=== PATIENT | female | born 1985 | race Caucasian/White ===

== ENCOUNTER 2017-12-03 16:55 | Emergency (ER) | payer SELFPAY ==
[2017-12-03 17:45] LABS: Absolute Lymphocytes (CBC) 2.6 K/uL (0.7-4.9); Absolute Monocytes 0.8 K/uL (0.1-1.3); Absolute Neutrophil 4.3 K/uL (1.8-8.0); Basophils % 0.3 % (0-1.3); Eosinophils % 2.6 % (0-4.4); Hematocrit 35.8 % (36.0-45.0); Lymphocytes % 32.9 % (15.3-44.8); MCH 20.4 pg (27.0-35.0); MCV 64.7 fL (80-100); Monocytes % 10.4 % (3.3-12.3); RBC Red Blood Cell Count 5.53 M/uL (3.86-4.86)
[2017-12-03 17:54] LABS: Urine Bacteria <20 /HPF (<20); Urine Culture Reflex Order REFLEXED; Urine Mucus 1+ /HPF (NONE SEEN); Urine RBC <5 /HPF (NONE SEEN)
[2017-12-03 17:55] LABS: Bicarbonate 25 mEq/L (21-31); Glucose Level 92 mg/dL (65-120); Lipase 34 U/L (22-51); Potassium 3.9 mEq/L (3.6-5.0); Sodium Level 139 mEq/L (135-145)
[2017-12-03] MEDS ORDERED: MORPHINE 10 MG/ML VIAL ONE (17:57)
[2017-12-03] MEDS ORDERED: ONDANSETRON 4 MG/2 ML VIAL ONE (17:57)
[2017-12-03] MEDS ORDERED: NA CHLORIDE 0.9% 1,000 ML ONE (17:57)
[2017-12-03 18:01] LABS: ALT/SGPT 13 IU/L (10-60); AST/SGOT 18 IU/L (10-42); Albumin 4.1 g/dL (3.2-5.5); Alkaline Phosphatase 64 IU/L (42-121); BUN Blood Urea Nitrogen 8 mg/dL (6-20); Bilirubin Direct < 0.1 mg/dL (0-0.2); Bilirubin Total 0.5 mg/dL (0.3-1.2); Glomerular Filtration Rate > 90 mL/min (=/>90); Protein, Total 7.1 g/dL (6.0-8.3)
[2017-12-03 18:22] LABS: Blood Morphology Comment NOTED (NOT SEEN); Platelet Estimate ADEQ; Urine White Blood Cell Casts OK
[2017-12-03 18:23] LABS: Anisocytosis SLIGHT
[2017-12-03 18:24] LABS: Hypochromasia 1+
[2017-12-03] MEDS ORDERED: PROMETHAZINE 25 MG/ML VIAL ONE (18:43)
--- NOTE | 2017-12-03 18:55 | RAD REPORT ---
EXAM DESCRIPTION: CT - Abdomen Pelvis W Contrast - 12/03/2017 6:29 pm CLINICAL HISTORY: Abdominal pain right abdominal pain COMPARISON: February 2017 TECHNIQUE: Computed axial tomography of the abdomen pelvis was obtained. 100 cc Isovue-300 was admin istered intravenously. Oral contrast was not requested which limits evaluation of bowel. All CT scans are performed using dose optimization technique as appropriate and may include automated exposure control or mA/KV adjustment according to patient size. FINDINGS: The liver, spleen, pancreas, adrenal and kidneys appear unremarkable. There is no evidence of diverticulitis. A 43 millimeter complex cystic mass is present within the rig ht adnexal. Significant free fluid is not noted. The wall of the rectosigmoid colon appears mildly thickened. A 3 centimeter area of narrowing involve s the proximal sigmoid colon IMPRESSION: 43 millimeter complex cystic mass within the right adnexal probably represents a benign complex ovarian cyst. An ovarian cystadenoma can also have this appearance. It is recommended patient have a followup ultrasound in the a couple of months to assess stability/resolution. The wall of the rectosigmoid colon appears mildly thickened. This could represent a mild colitis or s imply be secondary to incomplete distention. 3 centimeter area of narrowing involves the proximal sigmoid colon. Most likely this is secondary to spasm. A mass can have this appearance but is considered less likely. Followup is recommended.
[2017-12-03 18:58] LABS: Urine Blood TRACE (NEG); Urine Glucose NEGATIVE (NEG); Urine Protein 2+ (NEG); Urine pH 8.5 (5.0-7.0)
--- NOTE | 2017-12-03 19:07 | ER ---
Nurse's Notes [facility] Name: Sujey Diego Age: 32 yrs Sex: Female : 1985 Arrival Date: 12/03/2017 Time: 16:56 Bed 24 Private MD: Diagnosis: Urinary tract infection, site not specified;Other ovarian cysts-right Presentation: 12/03 17:00 Presenting complaint: Patient states: marga been having R lower abd pain since Monday hj and then back pain that started last night, today i vomited x3; denies fever and chills;. Transition of care: patient was not received from another setting of care. Onset of symptoms was December 03, 2017. Care prior to arrival: None. 17:00 Method Of Arrival: Ambulatory hj 17:00 Acuity: OMAIRA 3 hj Triage Assessment: 17:02 General: Appears in no apparent distress. uncomfortable, Behavior is calm, cooperative, hj appropriate for age. Pain: Complains of pain in right lower quadrant Pain radiates to right low back. GI: Reports lower abdominal pain, nausea, vomiting. 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 hj Historical: - Allergies: 17:02 Biaxin; hj 17:02 Demerol; hj 17:02 Doxycycline; hj 17:02 NSAIDS; agravated her chrons; hj 17:02 Prednisone; hj 17:02 steroids-causes adalberto; hj - Home Meds: 17:02 Cymbalta 30 mg Oral cpDR 1 cap once daily [Active]; hydroxyzine HCl 50 mg Oral tab for hj as needed for insomnia [Active]; Seroquel 100 mg Oral tab daily [Active]; Trileptal 300 mg Oral tab [Active]; - PMHx: 17:02 Anxiety; Bipolar disorder; Crohn's; Depression; Pneumonia; hj - PSHx: 17:02 ; Cholecystectomy; Tubal ligation; Appendectomy; rectoplexy; hj - Immunization history:: Adult Immunizations unknown. - Social history:: Smoking status: Patient/guardian denies using tobacco. Screenin:15 Abuse screen: Denies threats or abuse. Denies injuries from another. Nutritional kr2 screening: No deficits noted. Tuberculosis screening: No symptoms or risk factors identified. Fall Risk None identified. Assessment: 17:03 GI: Bowel sounds present X 4 quads. Abd is soft Abdomen is tender to palpation. hj 17:10 General: Appears in no apparent distress. comfortable, well groomed, well developed, kr2 well nourished, Behavior is calm, cooperative, appropriate for age. Pain: Complains of pain in abdomen and right lower quadrant Pain radiates to right low back Pain currently is 7 out of 10 on a pain scale. Quality of pain is described as aching, sharp, Pain began suddenly, Is continuous, Alleviated by nothing. Aggravated by urination. Neuro: Level of Consciousness is awake, alert, obeys commands, Oriented to person, place, time, situation, Appropriate for age. Cardiovascular: Capillary refill < 3 seconds in bilateral fingers Patient's skin is warm and dry. Respiratory: Airway is patent Respiratory effort is even, unlabored, Respiratory pattern is regular, symmetrical. GI: Bowel sounds present X 4 quads. Abd is soft X 4 quads Abdomen is tender to palpation in right lower quadrant and left lower quadrant. : Reports burning with urination, pain in suprapubic area. EENT: Oral mucosa is moist. Poor dentition noted. Derm: Skin is intact, is healthy with good turgor, Skin is pink, warm \T\ dry. Musculoskeletal: Circulation, motion, and sensation intact. Range of motion: intact in all extremities. 18:59 Reassessment: Patient appears in no apparent distress at this time. Patient and/or kr2 family updated on plan of care and expected duration. Pain level reassessed. Patient is alert, oriented x 3, equal unlabored respirations, skin warm/dry/pink. Patient states symptoms have improved. 19:20 Reassessment: Patient appears in no apparent distress at this time. Patient and/or kr2 family updated on plan of care and expected duration. Pain level reassessed. Patient is alert, oriented x 3, equal unlabored respirations, skin warm/dry/pink. Patient states feeling better. Patient states symptoms have improved. Vital Signs: 17:03 BP 132 / 104; Pulse 94; Resp 18; Temp 99.6(TE); Pulse Ox 100% on R/A; Weight 63.5 kg; hj Height 5 ft. 2 in. (157.48 cm); Pain 7/10; 17:19 Temp 98.7(O); dh3 18:57 BP 148 / 93; Pulse 74; Resp 15; Pulse Ox 100% on R/A; kr2 18:58 Pain 6/10; kr2 19:40 BP 133 / 94; Pulse 75; Resp 15; Temp 98.5(O); Pulse Ox 99% ; kr2 17:03 Body Mass Index 25.60 (63.50 kg, 157.48 cm) ED Course: 16:56 Patient arrived in ED. as 17:01 Triage completed. hj 17:03 Arm band placed on right wrist. hj 17:04 Rama Espinosa, GORAN is Primary Nurse. kr2 17:06 Christiano Brambila NP is PHCP. pm1 17:06 Eduardo Eric MD is Attending Physician. pm1 17:15 Patient has correct armband on for positive identification. Bed in low position. Call kr2 light in reach. Side rails up X 1. Pulse ox on. NIBP on. Door closed. Warm blanket given. Head of bed elevated. 17:40 Initial lab(s) drawn, by me, sent to lab. Inserted saline lock: 20 gauge in right dh3 antecubital area, using aseptic technique. Blood collected. 18:27 CT completed. Patient moved to CT via wheelchair. Patient moved back from CT. cw1 18:30 CT Abd/Pelvis - W/Contrast In Process Unspecified. EDMS 19:05 Rishi Bedolla MD is Referral Physician. pm1 19:13 No provider procedures requiring assistance completed. kr2 19:39 IV discontinued, intact, bleeding controlled, No redness/swelling at site. Pressure kr2 dressing applied. Administered Medications: 17:45 Drug: NS 0.9% 1000 ml Route: IV; Rate: 1000 ml; Site: right antecubital; kr2 19:12 Follow up: Response: No adverse reaction; IV Status: Completed infusion kr2 17:45 Drug: morphine 4 mg Route: IVP; Site: right antecubital; kr2 18:00 Follow up: Response: No adverse reaction; Pain is decreased kr2 17:45 Drug: Zofran 4 mg Route: IVP; Site: right antecubital; kr2 18:00 Follow up: Response: No adverse reaction; Nausea is decreased kr2 18:39 Drug: morphine 4 mg Route: IVP; Site: right antecubital; kr2 18:59 Follow up: Response: No adverse reaction; Pain is decreased kr2 18:39 Drug: Phenergan 12.5 mg Route: IVP; Site: right antecubital; kr2 18:58 Follow up: Response: No adverse reaction; Nausea is decreased kr2 19:19 Drug: Rocephin 1 grams Route: IV; Rate: calculated rate; Site: right antecubital; kr2 19:25 Follow up: Response: No adverse reaction; IV Status: Completed infusion kr2 Outcome: 19:06 Discharge ordered by MD. pm1 19:39 Discharged to home ambulatory, with family. kr2 19:39 Condition: good 19:39 Discharge instructions given to patient, Instructed on discharge instructions, follow up and referral plans. medication usage, Demonstrated understanding of instructions, follow-up care, medications, Prescriptions given X 3. 19:40 Patient left the ED. kr2 Addendum: 12/06/2017 11:02 Addendum: Culture Results: Positive urine culture. No further action required. Bacteria s s sensitive to prescribed antibiotic. Signatures: Dispatcher [employer] EDMS Alisha Jurado Shelby, Sharda Genao RN cw1 Hiro Abraham RN RN hj Marinas, Patrick, DORIS [employer] PLANTATION MANAGER pm1 Karla Willams 3 Rama Espinosa, RN RN kr2 Corrections: (The following items were deleted from the chart) 12/03 17:04 17:03 Pulse 94bpm; Resp 18bpm; Pulse Ox 100% RA; Temp 99.6F Temporal; 63.5 kg; Height 5 hj ft. 2 in.; BMI: 25.6; Pain 7/10; hj
--- NOTE | 2017-12-03 19:07 | EDPHYS ---
Physician Documentation [facility] Name: Sujey Diego Age: 32 yrs Sex: Female : 1985 Arrival Date: 12/03/2017 Time: 16:56 Bed 24 Private MD: ED Physician Eduardo Eric HPI: 12/03 18:27 This 32 yrs old Female presents to ER via Ambulatory with complaints of Flank pm1 pain and Vomiting. 18:27 The patient complains of pain in the right low back. pm1 18:28 Onset: The symptoms/episode began/occurred 4 day(s) ago. Modifying factors: The pm1 symptoms are alleviated by nothing. the symptoms are aggravated by nothing. Associated signs and symptoms: Pertinent positives: nausea, vomiting, Burning with urination, Pertinent negatives: fever. Severity of pain: in the emergency department the pain is actually worse. The patient has experienced similar episodes in the past, and the symptoms today are exactly the same, to when the patient was apparently diagnosed with urinary tract infections and pyelonephritis . The patient has not recently seen a physician. Patient with burning with urination for 4 days with right groin pain. Right flank pain onset yesterday. No fevers. Patient with 3 episodes of vomiting today. No diarrhea or fever. 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 Historical: - Allergies: 17:02 Biaxin; hj 17:02 Demerol; hj 17:02 Doxycycline; hj 17:02 NSAIDS; agravated her chrons; hj 17:02 Prednisone; hj 17:02 steroids-causes adalberto; hj - Home Meds: 17:02 Cymbalta 30 mg Oral cpDR 1 cap once daily [Active]; hydroxyzine HCl 50 mg Oral tab for hj as needed for insomnia [Active]; Seroquel 100 mg Oral tab daily [Active]; Trileptal 300 mg Oral tab [Active]; - PMHx: 17:02 Anxiety; Bipolar disorder; Crohn's; Depression; Pneumonia; hj - PSHx: 17:02 ; Cholecystectomy; Tubal ligation; Appendectomy; rectoplexy; hj - Immunization history:: Adult Immunizations unknown. - Social history:: Smoking status: Patient/guardian denies using tobacco. ROS: 18:28 Constitutional: Negative for fever, chills, and weight loss, Eyes: Negative for injury, pm1 pain, redness, and discharge, ENT: Negative for injury, pain, and discharge, Neck: Negative for injury, pain, and swelling, Cardiovascular: Negative for chest pain, palpitations, and edema, Respiratory: Negative for shortness of breath, cough, wheezing, and pleuritic chest pain. 18:28 MS/Extremity: Negative for injury and deformity, Skin: Negative for injury, rash, and discoloration, Neuro: Negative for headache, weakness, numbness, tingling, and seizure. 18:28 Abdomen/GI: Positive for abdominal pain, nausea and vomiting, of the right lower quadrant. 18:28 Back: Positive for flank pain, on the right. 18:28 : Positive for burning with urination. Exam: 18:28 Constitutional: This is a well developed, well nourished patient who is awake, alert, pm1 and in no acute distress. Head/Face: Normocephalic, atraumatic. Chest/axilla: Normal chest wall appearance and motion. Nontender with no deformity. No lesions are appreciated. Cardiovascular: Regular rate and rhythm with a normal S1 and S2. No gallops, murmurs, or rubs. Normal PMI, no JVD. No pulse deficits. Respiratory: Lungs have equal breath sounds bilaterally, clear to auscultation and percussion. No rales, rhonchi or wheezes noted. No increased work of breathing, no retractions or nasal flaring. 18:28 Skin: Warm, dry with normal turgor. Normal color with no rashes, no lesions, and no evidence of cellulitis. MS/ Extremity: Pulses equal, no cyanosis. Neurovascular intact. Full, normal range of motion. 18:28 Abdomen/GI: Inspection: abdomen appears normal, Bowel sounds: normal, Palpation: abdomen is soft and non-tender. 18:28 Back: pain, that is mild, of the right low back, normal spinal alignment noted. 18:28 Neuro: Orientation: is normal, Motor: is normal, moves all fours. Vital Signs: 17:03 BP 132 / 104; Pulse 94; Resp 18; Temp 99.6(TE); Pulse Ox 100% on R/A; Weight 63.5 kg; hj Height 5 ft. 2 in. (157.48 cm); Pain 7/10; 17:19 Temp 98.7(O); dh3 18:57 BP 148 / 93; Pulse 74; Resp 15; Pulse Ox 100% on R/A; kr2 18:58 Pain 6/10; kr2 19:40 BP 133 / 94; Pulse 75; Resp 15; Temp 98.5(O); Pulse Ox 99% ; kr2 17:03 Body Mass Index 25.60 (63.50 kg, 157.48 cm) hj MDM: 17:06 Patient medically screened. pm1 18:32 Data reviewed: vital signs. Data interpreted: Pulse oximetry: on room air is 100 %. pm1 Interpretation: normal. 19:00 Differential diagnosis: Pyelonephritis, chron's, Urinary tract infection, appendicitis. pm1 19:04 Counseling: I had a detailed discussion with the patient and/or guardian regarding: the pm1 historical points, exam findings, and any diagnostic results supporting the discharge/admit diagnosis, lab results, radiology results, the need for outpatient follow up, to return to the emergency department if symptoms worsen or persist or if there are any questions or concerns that arise at home. 12/03 17:27 Order name: Basic Metabolic Panel; Complete Time: 18:05 pm1 12/03 17:27 Order name: CBC with Diff; Complete Time: 18:26 pm1 12/03 17:27 Order name: Hepatic Function; Complete Time: 18:05 pm1 12/03 17:27 Order name: Lipase; Complete Time: 18:05 pm1 12/03 17:27 Order name: Urine Microscopic Only; Complete Time: 18:05 pm1 12/03 17:47 Order name: CBC Smear Scan; Complete Time: 18:26 EDMS 12/03 17:27 Order name: CT Abd/Pelvis - W/Contrast; Complete Time: 19:00 pm1 12/03 17:57 Order name: Urine Culture EDMS 12/03 18:23 Order name: Urine Dipstick--Ancillary (enter results); Complete Time: 19:00 bd 12/03 18:23 Order name: Urine --Ancillary (enter results); Complete Time: 19:00 bd 12/03 17:27 Order name: Urine Test (obtain specimen); Complete Time: 17:33 pm1 12/03 17:27 Order name: IV Saline Lock; Complete Time: 17:40 pm1 12/03 17:27 Order name: Labs collected and sent; Complete Time: 17:40 pm1 04 17:27 Order name: Urine Dipstick-Ancillary (obtain specimen); Complete Time: 17:33 pm1 Administered Medications: 17:45 Drug: NS 0.9% 1000 ml Route: IV; Rate: 1000 ml; Site: right antecubital; kr2 19:12 Follow up: Response: No adverse reaction; IV Status: Completed infusion kr2 17:45 Drug: morphine 4 mg Route: IVP; Site: right antecubital; kr2 18:00 Follow up: Response: No adverse reaction; Pain is decreased kr2 17:45 Drug: Zofran 4 mg Route: IVP; Site: right antecubital; kr2 18:00 Follow up: Response: No adverse reaction; Nausea is decreased kr2 18:39 Drug: morphine 4 mg Route: IVP; Site: right antecubital; kr2 18:59 Follow up: Response: No adverse reaction; Pain is decreased kr2 18:39 Drug: Phenergan 12.5 mg Route: IVP; Site: right antecubital; kr2 18:58 Follow up: Response: No adverse reaction; Nausea is decreased kr2 19:19 Drug: Rocephin 1 grams Route: IV; Rate: calculated rate; Site: right antecubital; kr2 19:25 Follow up: Response: No adverse reaction; IV Status: Completed infusion kr2 Disposition: 12/04 07:07 Co-signature as Attending Physician, Eduardo Eric MD. rn Disposition: 12/03/17 19:06 Discharged to Home. Impression: Urinary tract infection, site not specified, Other ovarian cysts - right. - Condition is Stable. - Discharge Instructions: Ovarian Cyst, Urinary Tract Infection. - Prescriptions for Tylenol- Codeine #3 300-30 mg Oral Tablet - take 2 tablets by ORAL route every 6 hours As needed; 20 tablet. promethazine 25 mg Oral Tablet - take 1 tablet by ORAL route every 6 hours As needed; 20 tablet. Macrobid 100 mg Oral Capsule - take 1 capsule by ORAL route every 12 hours for 10 days; 20 capsule. - Medication Reconciliation Form, Thank You Letter, Antibiotic Education, Prescription Opioid Use form. - Work release form (12/03/17 19:47). em1 - Follow up: Emergency Department; When: As needed; Reason: Worsening of condition. Follow up: Private Physician; When: 2 - 3 days; Reason: Recheck today's complaints, Continuance of care, Re-evaluation by your physician. Follow up: Rishi Bedolla MD; When: 2 - 3 days; Reason: Recheck today's complaints, Continuance of care, Re-evaluation by your physician. - Problem is new. - Symptoms have improved. Signatures: Dispatcher [employer] EDMS Eduardo Eric MD MD rn Joaquin, Henry RN Christiano Quinonez NP TRANSPORTATION ECONOMICS TEACHER pm1 Rama Espinosa RN RN kr2 Britton Jurado 1
[2017-12-03] MEDS ORDERED: CEFTRIAXONE/SWI 1gm 1 GM/10 ML SYR ONE (19:36)
[2017-12-03 19:56] VITALS: BP 133/94; TEMP 98.5; O2SAT 99
== END 2017-12-03 19:40 | disposition home or self-care (01) ==
LOC: ER 16:55
DX: N39.0 Urinary tract infection, site not specified (principal); N83.291 Other ovarian cyst, right side; F31.9 Bipolar disorder, unspecified; F41.9 Anxiety disorder, unspecified; Z88.1 Allergy status to other antibiotic agents; Z88.5 Allergy status to narcotic agent; Z88.6 Allergy status to analgesic agent; Z88.8 Allergy status to other drugs, medicaments and biological substances
CPT/HCPCS: 36415; 74177; 80048; 80076; 81003; 81015; 81025; 83690; 85025; 87077; 87086; 87088; 87186; 96361; 96374; 96375; 99284; J0696; J2405; J2550; J7030; Q9967

== ENCOUNTER 2018-07-24 12:36 | Emergency (ER) | payer SELFPAY ==
[2018-07-24] MEDS ORDERED: HYDROCODONE/APAP 5/325 MG TAB ONE (15:42)
--- NOTE | 2018-07-24 16:39 | ER ---
Nurse's Notes [facility] Name: Sujey Diego Age: 32 yrs Sex: Female : 1985 Arrival Date: 07/24/2018 Time: 12:37 Bed Treatment Private MD: None, None Diagnosis: Sprain of other ligament of left ankle Presentation: 07/24 13:21 Presenting complaint: Patient states: "I fell, I turned my ankle, my foot went all the aj1 way and I hit the ground. I was sobbing and I haven't been able to stand on it" Reports pain to left ankle since 1000 this morning . Limited ROM noted to left ankle. Transition of care: patient was not received from another setting of care. Onset of symptoms was July 24, 2018 at 10:00. Risk Assessment: Do you want to hurt yourself or someone else? Patient reports no desire to harm self or others. Initial Sepsis Screen: Does the patient meet any 2 criteria? No. Patient's initial sepsis screen is negative. Does the patient have a suspected source of infection? No. Patient's initial sepsis screen is negative. Care prior to arrival: None. 13:21 Method Of Arrival: Other aj1 13:21 Acuity: OMAIRA 4 aj1 Triage Assessment: 13:23 General: Appears in no apparent distress. uncomfortable, Behavior is calm, cooperative, aj1 appropriate for age. Pain: Complains of pain in left ankle Pain currently is 8 out of 10 on a pain scale. Neuro: Level of Consciousness is awake, alert, obeys commands. Cardiovascular: Patient's skin is warm and dry. Musculoskeletal: Range of motion: limited in left ankle. 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 - Social history:: Smoking status: unknown. - Ebola Screening: : No symptoms or risks identified at this time. Screenin:11 Abuse screen: Denies threats or abuse. Denies injuries from another. Nutritional mg2 screening: No deficits noted. Tuberculosis screening: No symptoms or risk factors identified. Fall Risk None identified. No IV (0 pts). Assessment: 16:09 General: Appears in no apparent distress. uncomfortable, Behavior is calm, cooperative. mg2 Pain: Complains of pain in left ankle Pain does not radiate. Pain currently is 8 out of 10 on a pain scale. Quality of pain is described as aching, Pain began suddenly, 5 hours ago Is intermittent. Neuro: Level of Consciousness is awake, alert, obeys commands, Oriented to person, place, time, situation. Cardiovascular: Capillary refill < 3 seconds Patient's skin is warm and dry. Respiratory: Airway is patent Respiratory effort is even, unlabored, Respiratory pattern is regular, symmetrical. GI: No deficits noted. : No signs and/or symptoms were reported regarding the genitourinary system. EENT: No deficits noted. Derm: Skin is intact, is healthy with good turgor, Skin is pink, warm \\T\\ dry. normal. Musculoskeletal: Circulation, motion, and sensation intact. Capillary refill < 3 seconds, Swelling present in left ankle. Injury Description: twisted ankle. Vital Signs: 13:23 BP 122 / 86; Pulse 89; Resp 18; Temp 98.4; Pulse Ox 100% on R/A; Weight 61.23 kg (R); aj1 Height 5 ft. 2 in. (157.48 cm) (R); Pain 8/10; 13:23 Body Mass Index 24.69 (61.23 kg, 157.48 cm) aj1 ED Course: 12:37 Patient arrived in ED. sb2 12:37 None, None is Private Physician. sb2 13:22 Triage completed. aj1 13:23 Arm band placed on Patient placed in waiting room, Patient notified of wait time. aj1 15:20 Christiano Brambila NP is PHCP. pm1 15:20 Eduardo Eric MD is Attending Physician. pm1 15:33 Jayesh Saucedo, GORAN is Primary Nurse. mg2 15:51 Ankle Left 3 View XRAY In Process Unspecified. EDMS 16:11 No provider procedures requiring assistance completed. Patient did not have IV access mg2 during this emergency room visit. 16:38 Emory Paez MD is Referral Physician. pm1 17:26 Orthoglass splint: stirrup splint applied on left leg. mg2 17:27 Patient has correct armband on for positive identification. mg2 Administered Medications: 15:35 Drug: HYDROcodone-acetaminophen 5 mg-325 mg 1 tabs Route: PO; mg2 Outcome: 16:38 Discharge ordered by . pm1 17:26 Discharged to home via wheelchair, with crutches. mg2 17:26 Condition: good 17:26 Discharge instructions given to patient, Instructed on discharge instructions, follow up and referral plans. medication usage, Demonstrated understanding of instructions, follow-up care, medications, Prescriptions given X 1. 17:30 Patient left the ED. mg2 Signatures: Dispatcher [employer] EDMS Queenie Scruggs, RN RN aj1 Christiano Brambila, DORIS CONTINUUM OF CARE MANAGER pm1 Catie Ortiz sb2 Jayesh Saucedo RN RN mg2
--- NOTE | 2018-07-24 16:40 | EDPHYS ---
Physician Documentation [facility] Name: Sujey Diego Age: 32 yrs Sex: Female : 1985 Arrival Date: 07/24/2018 Time: 12:37 Bed Treatment Private MD: None, None ED Physician Eduardo Eric HPI: 07/24 16:00 This 32 yrs old Female presents to ER via Other with complaints of Ankle pm1 Injury. 16:00 The patient presents with pain, that is acute. pm1 16:00 The complaints affect the left ankle. Onset: The symptoms/episode began/occurred today. pm1 Context: The problem was sustained at work, The mechanism of injury involved inversion of the affected ankle. The patient is not able to ambulate, uses crutches. Associated signs and symptoms: Pertinent negatives: calf tenderness, numbness, tingling, weakness. Modifying factors: The symptoms are alleviated by nothing, the symptoms are aggravated by weight bearing. Severity of symptoms: in the emergency department the symptoms are actually worse. The patient has experienced similar episodes in the past, several times. The patient has not recently seen a physician. 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 - Social history:: Smoking status: unknown. - Ebola Screening: : No symptoms or risks identified at this time. ROS: 16:00 Constitutional: Negative for fever, chills, and weight loss, Eyes: Negative for injury, pm1 pain, redness, and discharge, ENT: Negative for injury, pain, and discharge, Neck: Negative for injury, pain, and swelling, Cardiovascular: Negative for chest pain, palpitations, and edema, Respiratory: Negative for shortness of breath, cough, wheezing, and pleuritic chest pain, Abdomen/GI: Negative for abdominal pain, nausea, vomiting, diarrhea, and constipation, Back: Negative for injury and pain. 16:00 Skin: Negative for injury, rash, and discoloration, Neuro: Negative for headache, weakness, numbness, tingling, and seizure. 16:00 MS/extremity: Positive for pain, of the left ankle. Exam: 16:00 Constitutional: This is a well developed, well nourished patient who is awake, alert, pm1 and in no acute distress. Head/Face: Normocephalic, atraumatic. Eyes: Pupils equal round and reactive to light, extra-ocular motions intact. Lids and lashes normal. Conjunctiva and sclera are non-icteric and not injected. Cornea within normal limits. Periorbital areas with no swelling, redness, or edema. ENT: Nares patent. No nasal discharge, no septal abnormalities noted. Tympanic membranes are normal and external auditory canals are clear. Oropharynx with no redness, swelling, or masses, exudates, or evidence of obstruction, uvula midline. Mucous membranes moist. Neck: Trachea midline, no thyromegaly or masses palpated, and no cervical lymphadenopathy. Supple, full range of motion without nuchal rigidity, or vertebral point tenderness. No Meningismus. Chest/axilla: Normal chest wall appearance and motion. Nontender with no deformity. No lesions are appreciated. Cardiovascular: Regular rate and rhythm with a normal S1 and S2. No gallops, murmurs, or rubs. Normal PMI, no JVD. No pulse deficits. Respiratory: Lungs have equal breath sounds bilaterally, clear to auscultation and percussion. No rales, rhonchi or wheezes noted. No increased work of breathing, no retractions or nasal flaring. Abdomen/GI: Soft, non-tender, with normal bowel sounds. No distension or tympany. No guarding or rebound. No evidence of tenderness throughout. Back: No spinal tenderness. No costovertebral tenderness. Full range of motion. Skin: Warm, dry with normal turgor. Normal color with no rashes, no lesions, and no evidence of cellulitis. 16:00 Musculoskeletal/extremity: Extremities: grossly normal except: noted in the left lateral ankle: swelling, tenderness. 16:00 Neuro: Orientation: is normal, Motor: is normal. Vital Signs: 13:23 BP 122 / 86; Pulse 89; Resp 18; Temp 98.4; Pulse Ox 100% on R/A; Weight 61.23 kg (R); aj1 Height 5 ft. 2 in. (157.48 cm) (R); Pain 8/10; 13:23 Body Mass Index 24.69 (61.23 kg, 157.48 cm) [facility] MDM: 15:21 Patient medically screened. pm1 16:37 Data reviewed: vital signs. Data interpreted: Pulse oximetry: on room air is 100 %. pm1 Interpretation: normal. Counseling: I had a detailed discussion with the patient and/or guardian regarding: the historical points, exam findings, and any diagnostic results supporting the discharge/admit diagnosis, radiology results, the need for outpatient follow up, for definitive care, a orthopedic surgeon, MRI, to return to the emergency department if symptoms worsen or persist or if there are any questions or concerns that arise at home. 07/24 13:24 Order name: Ankle Left 3 View XRAY [facility] 07/24 15:31 Order name: Ice pack; Complete Time: 15:33 pm1 07/24 17:26 Order name: Posterior Leg Splint; Complete Time: 17:26 mg2 Administered Medications: 15:35 Drug: HYDROcodone-acetaminophen 5 mg-325 mg 1 tabs Route: PO; mg2 Disposition: 18:33 Co-signature as Attending Physician, Eduardo Eric MD. rn Disposition: 07/24/18 16:38 Discharged to Home. Impression: Sprain of other ligament of left ankle. - Condition is Stable. - Discharge Instructions: Ankle Sprain, Cast or Splint Care, Adult, Crutch Use. - Prescriptions for Tylenol- Codeine #3 300-30 mg Oral Tablet - take 2 tablets by ORAL route every 6 hours As needed; 20 tablet. - Medication Reconciliation Form, Thank You Letter, Prescription Opioid Use, Work release form form. - Follow up: Emergency Department; When: As needed; Reason: Worsening of condition. Follow up: Emory Paez MD; When: 2 - 3 days; Reason: Recheck today's complaints, Continuance of care, Re-evaluation by your physician. - Problem is new. - Symptoms have improved. Signatures: Dispatcher [employer] EDMS Queenie Scruggs RN RN aj1 Eduardo Eric MD MD rn Marinas, Patrick, DORIS WATER CHASER pm1 Jayesh Saucedo RN RN mg2 Corrections: (The following items were deleted from the chart) 17:25 16:37 Splint - Ankle: Aircast ordered. pm1 mg2 17:30 16:38 07/24/2018 16:38 Discharged to Home. Impression: Sprain of other ligament of left mg2 ankle. Condition is Stable. Forms are Medication Reconciliation Form, Thank You Letter, Antibiotic Education, Prescription Opioid Use. Follow up: Emergency Department; When: As needed; Reason: Worsening of condition. Follow up: Emory Paez; When: 2 - 3 days; Reason: Recheck today's complaints, Continuance of care, Re-evaluation by your physician. Problem is new. Symptoms have improved. pm1
[2018-07-24 17:54] VITALS: BP 122/86; TEMP 98.4; O2SAT 100
--- NOTE | 2018-07-25 08:24 | RAD REPORT ---
EXAM DESCRIPTION: RAD - Ankle Left 3 View - 07/24/2018 9:38 pm CLINICAL HISTORY: Ankle pain, twisting injury COMPARISON: None. FINDINGS: No fracture, dislocation or periosteal reaction. No joint effusion seen. No joint space na rrowing. Lateral soft tissue swelling is present. IMPRESSION: Soft tissue swelling with no left ankle fracture.
== END 2018-07-24 17:30 | disposition home or self-care (01) ==
LOC: ER 12:36
PROC: 2W3RX1Z Immobilization of Left Lower Leg using Splint (ICD-10-PCS; principal; 2018-07-24)
DX: S93.492A Sprain of other ligament of left ankle, initial encounter (principal); X58.XXXA Exposure to other specified factors, initial encounter; Y93.9 Activity, unspecified; Y92.89 Other specified places as the place of occurrence of the external cause; Y99.8 Other external cause status; Z88.1 Allergy status to other antibiotic agents; Z88.5 Allergy status to narcotic agent; Z88.6 Allergy status to analgesic agent; Z88.8 Allergy status to other drugs, medicaments and biological substances
CPT/HCPCS: 99284

== ENCOUNTER 2019-04-23 19:07 | Emergency (ER) | payer SELFPAY ==
--- OUTSIDE RECORDS SUMMARY | 2019-04-23 19:10 | XMS REPORT ---
:1985 Author Organization [employer] Care Team Providers Name Role Phone Philippe Emory Provider Role Unavailable Allergies, Adverse Reactions, Alerts Substance Reaction Event Type Latex Info Not Available Drug Allergy doxycycline Info Not Available Drug Allergy NSAIDS Info Not Available Drug Allergy Biaxin Info Not Available Drug Allergy Aspirin Info Not Available Drug Allergy Problems Problem Type Condition Code Onset Dates Condition Status Problem Sprain of other ligament of left S93.492D Active ankle, subsequent encounter Problem Inversion sprain of left ankle, S93.402A Active initial encounter Problem Injury of peroneal nerve at lower S84.12XD Active leg level, left leg, subsequent encounter Assessment Pain in left ankle and joints of M25.572 Active left foot Assessment Inversion sprain of left ankle, S93.402A Active initial encounter Problem Pain in left ankle and joints of M25.572 Active left foot Medications Medication Code Code Instructions Start End Date Status Dosage System Date Vistaril [facility] 01060532657 50 MG Orally Active 1 capsule every 6 hrs as needed Trileptal ND 86919844177 600 MG Orally Active 1 tablet Twice a day Tylenol # 3 NDC 0 300/30mg Orally Aug 06, Sep 05, Active one tab every 6 hrs 2017 2018 Cymbalta ND 07214401515 20 MG Orally Active 1 capsule Twice a day Seroquel ND 21294218846 100 MG Orally Active 1 tablet Once a day Results No Known Results Summary Purpose [employer] Submission
--- OUTSIDE RECORDS SUMMARY | 2019-04-23 19:10 | XMS REPORT ---
:1985 [facility] Address [address] [place] [address] Care Team Providers Name Role Phone Unavailable Unavailable Unavailable Problems This patient has no known problems. Allergies, Adverse Reactions, Alerts This patient has no known allergies or adverse reactions. Medications This patient has no known medications.
--- OUTSIDE RECORDS SUMMARY | 2019-04-23 19:10 | XMS REPORT ---
:1985 Author Organization [employer] Care Team Providers Name Role Phone Emory Paez Provider Role Unavailable Allergies, Adverse Reactions, Alerts Substance Reaction Event Type Latex Info Not Available Drug Allergy doxycycline Info Not Available Drug Allergy NSAIDS Info Not Available Drug Allergy Biaxin Info Not Available Drug Allergy Aspirin Info Not Available Drug Allergy Problems Problem Type Condition Code Onset Dates Condition Status Assessment Injury of peroneal nerve at lower S84.12XD Active leg level, left leg, subsequent encounter Problem Sprain of other ligament of left S93.492D Active ankle, subsequent encounter Problem Inversion sprain of left ankle, S93.402A Active initial encounter Problem Injury of peroneal nerve at lower S84.12XD Active leg level, left leg, subsequent encounter Assessment Pain in left ankle and joints of M25.572 Active left foot Assessment Sprain of other ligament of left S93.492D Active ankle, subsequent encounter Problem Pain in left ankle and joints of M25.572 Active left foot Medications Medication Code Code Instructions Start End Status Dosage System Date Date Trileptal [facility] 46187158760 600 MG Orally Active 1 tablet Twice a day Seroquel [facility] 34459502180 100 MG Orally Active 1 tablet Once a day Tylenol # 3 NDC 0 300/30mg PO BID Aug 30, Sep 14, Active one tab PRN 2018 2018 Tylenol # 3 NDC 0 300/30mg Orally Aug 06, Sep 05, Active one tab every 6 hrs 2017 2018 Vistaril [facility] 17915549985 50 MG Orally Active 1 capsule every 6 hrs as needed Cymbalta [facility] 31885837392 20 MG Orally Active 1 capsule Twice a day Acetaminophen- [facility] 29525647472 300-30 MG Active TAKE 1 Codeine #3 TABLET BY MOUTH EVERY 6 HOURS NEEDED FOR PAIN Results No Known Results Summary Purpose eClinicalWorks Submission
[2019-04-23] MEDS ORDERED: HYDROCODONE/APAP 7.5/325 MG TAB ONE (19:44)
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
[2019-04-23 22:44] VITALS: TEMP 98
[2019-04-23 22:45] VITALS: O2SAT 100
[2019-04-23 22:46] VITALS: BP 134/86
== END 2019-04-23 22:05 | disposition home or self-care (01) ==
LOC: ER 19:07
DX: S16.1XXA Strain of muscle, fascia and tendon at neck level, initial encounter (principal); M54.12 Radiculopathy, cervical region; F17.210 Nicotine dependence, cigarettes, uncomplicated; Z88.1 Allergy status to other antibiotic agents; Z88.3 Allergy status to other anti-infective agents; Z88.5 Allergy status to narcotic agent; Z88.6 Allergy status to analgesic agent; Z88.8 Allergy status to other drugs, medicaments and biological substances
CPT/HCPCS: 72125

== ENCOUNTER 2019-05-19 17:21 | Emergency (ER) | payer SELFPAY ==
--- OUTSIDE RECORDS SUMMARY | 2019-05-19 17:24 | XMS REPORT ---
:1985 Author Organization [facility] Address [address] [place] [address] Dr. Garces [address] [place] [id number] Care Team Providers Name Role Phone Unavailable Unavailable Unavailable Problems This patient has no known problems. Allergies, Adverse Reactions, Alerts This patient has no known allergies or adverse reactions. Medications This patient has no known medications.
--- OUTSIDE RECORDS SUMMARY | 2019-05-19 17:24 | XMS REPORT ---
[...] End Date Status Dosage System Date Vistaril [facility] 31212454104 50 MG Orally Active 1 capsule every 6 hrs as needed Trileptal ND 88086609782 600 MG Orally Active 1 tablet Twice a day Tylenol # 3 NDC 0 300/30mg Orally Aug 06, Sep 05, Active one tab every 6 hrs 2017 2018 Cymbalta ND 79134745074 20 MG Orally Active 1 capsule Twice a day Seroquel ND 79857886239 100 MG Orally Active 1 tablet Once a day Results No Known Results Summary Purpose eClinicalWorks Submission
--- OUTSIDE RECORDS SUMMARY | 2019-05-19 17:24 | XMS REPORT | Summary of Care ---
:1985 Author Organization [facility] Address [address] [place] [address] Care Team Providers Name Role Phone Prince Bolaños [facility] Primary Care Provider [phone] Encounter Details Date Type Department Care Team Description 04/29/2019 Orders Only [facility] Doctor Unassigned, No [address] [facility] [place] [address] [place] [id number] Allergies Active Allergy Reactions Severity Noted Date Comments Clarithromycin Palpitations 09/28/2007 Doxycycline Nausea and/or Vomiting 05/13/2015 Nsaids (Non-Steroidal Swelling 03/03/2018 Anti-Inflammatory Drug) Prednisone Hallucinations 09/28/2007 documented as of this encounter (statuses as of 04/29/2019) Medications Medication Sig Dispensed Refills Start Date End Date Status OXcarbazepine Take by mouth 3 0 Active (TRILEPTAL) 300 mg (three) times tablet daily. DULoxetine (CYMBALTA) 60 Take 60 mg by 0 Active mg capsule mouth daily. QUETIAPINE FUMARATE Take 150 mg by 0 Active (SEROQUEL ORAL) mouth daily. hydrOXYzine (VISTARIL) Take 50 mg by 0 Active 50 mg capsule mouth as needed. documented as of this encounter (statuses as of 04/29/2019) Active Problems Problem Noted Date Left ear pain 09/27/2018 Cough 09/27/2018 Abscess of groin, left 03/13/2015 documented as of this encounter (statuses as of 04/29/2019) Social History Tobacco Use Types Packs/Day Years Used Date Current Every Day Smoker Cigarettes 0.5 13 Smokeless Tobacco: Never Used Comments: 1 ppd Alcohol Use Drinks/Week oz/Week Comments No Sex Assigned at Date Recorded Not on file Job Start Date Occupation Industry Not on file Not on file Not on file Travel History Travel Start Travel End No recent travel history available. documented as of this encounter Last Filed Vital Signs Not on filedocumented in this encounter Plan of Treatment Health Maintenance Due Date Last Done Comments PNEUMOCOCCAL 0-64 YEARS COMBINED SERIES (1 of 1 - 1990 PPSV23) VARICELLA VACCINES (1 of 2 - 13+ 2-dose series) 1997 DTaP,Tdap,and Td Vaccines (1 - Tdap) 2003 PAP SMEAR 2005 INFLUENZA VACCINE (Retired version) 04/28/2019 documented as of this encounter Procedures Procedure Name Priority Date/Time Associated Diagnosis Comments CONSENT/REFUSAL FOR Routine 04/29/2019 12:10 PM CDT DIAGNOSIS AND TREATMENT documented in this encounter Results Not on filedocumented in this encounter Insurance Payer Benefit Plan Subscriber ID Effective Dates Phone Address Type / Group [employer] [place] [id number] 2018-Thad [phone] [address] PPO/POS [place] [id number] [place] [address] documented as of this encounter
--- OUTSIDE RECORDS SUMMARY | 2019-05-19 17:24 | XMS REPORT ---
[...] End Status Dosage System Date Date Trileptal [facility] 14997398222 600 MG Orally Active 1 tablet Twice a day Seroquel [facility] 48015846831 100 MG Orally Active 1 tablet Once a day Tylenol # 3 NDC 0 300/30mg PO BID Aug 30, Sep 14, Active one tab PRN 2018 2018 Tylenol # 3 NDC 0 300/30mg Orally Aug 06, Sep 05, Active one tab every 6 hrs 2017 2018 Vistaril [facility] 40096939669 50 MG Orally Active 1 capsule every 6 hrs as needed Cymbalta [facility] 16549029073 20 MG Orally Active 1 capsule Twice a day Acetaminophen- [facility] 19343716986 300-30 MG Active TAKE 1 Codeine #3 TABLET BY MOUTH EVERY 6 HOURS NEEDED FOR PAIN Results No Known Results Summary Purpose eClinicalWorks Submission
--- OUTSIDE RECORDS SUMMARY | 2019-05-19 17:24 | XMS REPORT | Summary of Care ---
:1985 Author Organization [facility] Address [address] [place] [address] Care Team Providers Name Role Phone Prince Bolaños [facility] Primary Care Provider [phone] Reason for Visit Reason Comments FACIAL SWELLING Auth/Cert Status Reason Specialty Diagnoses / Referred By Referred To Procedures Contact Contact Emergency Medicine Diagnoses FACIAL EDEMA/PAIN [facility] Emergency Dept [address] [place] [address] [place] [address] Encounter Details Date Type Department Care Team Description 04/29/2019 Emergency [facility]-Emergency Department Antionette Phan Impetigo (Primary Dx) [address] [place] [address] [place] [address] [address] [facility] [phone] [id number] [place], [place] [id number] Allergies Active Allergy Reactions Severity Noted Date Comments Clarithromycin Palpitations 09/28/2007 Doxycycline Nausea and/or Vomiting 05/13/2015 Nsaids (Non-Steroidal Swelling 03/03/2018 Anti-Inflammatory Drug) Prednisone Hallucinations 09/28/2007 documented as of this encounter (statuses as of 04/29/2019) Medications Medication Sig Dispensed Refills Start Date End Date Status OXcarbazepine Take by mouth 0 Active (TRILEPTAL) 300 mg 3 (three) times tablet daily. DULoxetine (CYMBALTA) Take 60 mg by 0 Active 60 mg capsule mouth daily. QUETIAPINE FUMARATE Take 150 mg by 0 Active (SEROQUEL ORAL) mouth daily. hydrOXYzine (VISTARIL) Take 50 mg by 0 Active 50 mg capsule mouth as needed. cephALEXin 500 mg Take 1 capsule 28 capsule 0 04/29/2019 05/06/2019 Active capsuleIndications: by mouth 4 Impetigo (four) times daily for 7 days. mupirocin 2 % Apply to 22 g 0 04/29/2019 Active ointmentIndications: area(s) 3 Impetigo (three) times daily. documented as of this encounter (statuses as [...] of this encounter Last Filed Vital Signs Vital Sign Reading Time Taken Comments Blood Pressure 141/95 04/29/2019 12:22 PM CDT Pulse 104 04/29/2019 12:22 PM CDT Temperature 38.1 C (100.5 F) 04/29/2019 12:22 PM CDT Respiratory Rate 18 04/29/2019 12:22 PM CDT Oxygen Saturation 97% 04/29/2019 12:22 PM CDT Inhaled Oxygen Concentration - - Weight 52.2 kg (115 lb) 04/29/2019 12:22 PM CDT Height 157.5 cm (5' 2") 04/29/2019 12:22 PM CDT Body Mass Index 21.03 04/29/2019 12:22 PM CDT documented in this encounter Discharge Instructions Antionette Castro EMNP - 04/29/2019NO LIFE-THREATENING FINDINGS ON TODAY'S EXAM. SPECIAL INSTRUCTIONS: 1. See attached information 2. Must wash well with soapy water, pat dry, and apply ointment as directed 3. Wash hands well, this is highly contagious FOLLOW-UP RECOMMENDATIONS: RECOMMEND FOLLOW-UP WITH A PRIMARY CARE PROVIDER OR SPECIALIST IN 2-5 DAYS, ESPECIALLY IF NO IMPROVEMENT IN SYMPTOMS. TO FOLLOW-UP WITHIN THE [facility], TRY THESE OPTIONS (CLINIC APPOINTMENTS AVAILABLE ON CZCD-EH-DMRR BASIS): 1. SCHEDULE AN APPOINTMENT ONLINE AT [facility] 2. OR CALL THE [facility] ACCESS CENTER AT OR 3. OR CALL YOUR [facility] PHYSICIAN'S OFFICE DIRECTLY IF YOU ARE ALREADY AN ESTABLISHED [facility] PATIENT. OR, YOU MAY FOLLOW-UP WITH A PROVIDER OF YOUR CHOICE, SUCH : 1. A PHYSICIAN OF YOUR CHOICE 2. [facility], . LOCATIONS IN [facility] 3. [facility], [address], [place]; RETURN TO ER FOR WORSENING OF SYMPTOMS. AttachmentsThe following attachments cannot be sent through Care Everywhere.Impetigo, Understanding (Gabonese)Mupirocin skin cream or ointment ( Gabonese)Cephalexin tablets or capsules (Gabonese)documented in this encounter Plan of Treatment Health Maintenance Due Date Last Done Comments PNEUMOCOCCAL 0-64 YEARS COMBINED SERIES (1 of 1 - 1990 PPSV23) VARICELLA VACCINES (1 of 2 - 13+ 2-dose series) 1997 DTaP,Tdap,and Td Vaccines (1 - Tdap) 2003 PAP SMEAR 2005 INFLUENZA VACCINE (Retired version) 04/28/2019 documented as of this encounter Results Not on filedocumented in this encounter Visit Diagnoses Diagnosis Impetigo - Primary documented in this encounter
[2019-05-19] MEDS ORDERED: CYCLOBENZAPRINE 10 MG TAB ONE (18:30)
[2019-05-19] MEDS ORDERED: HYDROCODONE/APAP 10/325 TAB ONE (18:31)
[2019-05-19] MEDS ORDERED: HYDROCODONE/APAP 5/325 MG TAB ONE (18:34)
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
[2019-05-19 19:46] VITALS: TEMP 97.4
[2019-05-19 19:47] VITALS: BP 134/93; O2SAT 97
== END 2019-05-19 18:48 | disposition home or self-care (01) ==
LOC: ER 17:21
DX: M54.12 Radiculopathy, cervical region (principal); F17.210 Nicotine dependence, cigarettes, uncomplicated; V89.2XXA Person injured in unspecified motor-vehicle accident, traffic, initial encounter; Z88.1 Allergy status to other antibiotic agents; Z88.5 Allergy status to narcotic agent; Z88.6 Allergy status to analgesic agent; Z88.8 Allergy status to other drugs, medicaments and biological substances
CPT/HCPCS: 99283